=== PATIENT | female | born 1940 | race Two or more races ===

== ENCOUNTER 2024-05-14 20:40 | Inpatient (IN) | payer BC, MEDICARE, OTHER ==
[~2024-05-14] VITALS: Ht 157.5 cm; Wt 67.9 kg
[2024-05-14 21:20] LABS: Basophils # (auto) 0 10 ^3/uL (0-0.2); Basophils % (auto) 0.5 % (0.0-2.0); Eosinophils # (auto) 0.2 10 ^3/uL (0-0.8); Eosinophils % (auto) 2.1 % (0.0-7.0); Hematocrit 37.7 % (36.0-46.0); Hemoglobin 12.8 g/dL (12.2-16.2); Lymphocytes # (auto) 1.7 10 ^3/uL (0.4-5.4); Lymphocytes % (auto) 23.4 % (10.0-50.0); Monocytes # (auto) 0.6 10 ^3/uL (0-1.3); Monocytes % (auto) 8.9 % (0.0-12.0); Neutrophils # (auto) 4.7 10 ^3/uL (1.6-8.6); Neutrophils % (auto) 65.1 % (37.0-80.0); Platelet Count (auto) 197 10^3/uL (140-450); Red Blood Cells 3.77 10^6/uL (4.0-5.20); Red Cell Distribution Width 13.7 % (11.8-14.3); White Blood Cell 7.3 10^3/uL (4.4-10.8)
[2024-05-14] MEDS: ONDANSETRON HCL 4 MG/2 ML VIAL IV ONE (21:27)
[2024-05-14] MEDS: MORPHINE SULFATE INJ 2 MG/ml SYRG IV ONE (21:27)
[2024-05-14 21:40] LABS: Chloride 104 mmol/L (98-107); Potassium 4.1 mmol/L (3.5-5.1); Sodium 137 mmol/L (136-145)
[2024-05-14 21:41] LABS: Anion Gap 3 (5-15); Carbon Dioxide 30 mmol/L (20-30)
[2024-05-14 21:42] LABS: Calcium 9.9 mg/dL (8.7-10.4)
[2024-05-14 21:46] LABS: Glucose 124 mg/dL (74-106)
[2024-05-14 21:47] LABS: BUN/Creatinine Ratio 18.4 (10.0-20.0); Blood Urea Nitrogen 16 mg/dL (9-23)
[2024-05-14 21:58] VITALS: PULSE 72; RESP 16; O2SAT 97
[2024-05-15] VITALS (9 sets, daily range): BP systolic 86–121; BP diastolic 40–63; PULSE 69–90; RESP 15–20; TEMP 97.7–98.5; O2SAT 90–100
[2024-05-15] MEDS ORDERED: ONDANSETRON HCL 4 MG/2 ML VIAL IV ONE (00:45)
[2024-05-15] MEDS ORDERED: ACETAMINOPHEN 325 MG TAB PO PRN (01:30)
[2024-05-15] MEDS ORDERED: ONDANSETRON HCL 4 MG/2 ML VIAL IV PRN (01:30)
[2024-05-15 01:50] LABS: Urine Bacteria FEW /hpf (None Seen); Urine Blood Negative /uL (Negative); Urine Clarity Clear (Clear); Urine Color Light-Yellow (Yellow); Urine Mucus FEW (None Seen); Urine Protein, UAD TRACE (Negative); Urine Specific Gravity 1.026 (1.001-1.035); Urine Urobilinogen Normal (Negative); Urine WBC 28 /hpf (0 - 5); Urine pH 5.5 (5.0-9.0)
[2024-05-15] MEDS: HYDROcodone-ACET 10/325MG TAB PO ONE (02:18)
[2024-05-15] MEDS: MORPHINE SULFATE 4 MG/ML SYR/VIAL IV ONE (02:19)
[2024-05-15] MEDS: SODIUM CHLORIDE 0.9% 1,000 ML IV ONE (02:50)
[2024-05-15] MEDS: D5W 5% 1,000 ML IV ONE (02:50)
[2024-05-15] MEDS ORDERED: OMEP20TA PO (04:16)
[2024-05-15] MEDS ORDERED: SIMV20TA20 PO (04:16)
[2024-05-15] MEDS ORDERED: TRAM50TA2 PO (04:16)
[2024-05-15] MEDS ORDERED: METF-370 PO (04:16)
[2024-05-15] MEDS: SODIUM CHLOR 0.9% PF (SALINE LOCK) 10ML VIAL/SYR IV SCH (05:24)
[2024-05-15] MEDS: PANTOPRAZOLE 40 MG/10 ML VIAL INJ IV SCH (08:56)
[2024-05-15] MEDS: HYDROcodone-ACET 5/325MG TAB PO PRN (08:57)
[2024-05-15] MEDS: Glucerna Carbsteady SHAKE Stawberry 8oz PO SCH (12:15)
[2024-05-15] MEDS ORDERED: DEXTROSE (50%) 50ML SYRG IV PRN (14:30)
[2024-05-15] MEDS: ACCU-CHEK COMFORT CURVE STRIP VI SCH (17:00)
[2024-05-15] MEDS: InsuLIN REG 1unit/0.01ml Soln (100units/ml) SC SCH (17:00)
[2024-05-15] MEDS: HYDROmorphone HCL 2 MG/ML VL/or syr IV PRN (23:31)
[2024-05-16] VITALS (8 sets, daily range): BP systolic 103–163; BP diastolic 48–79; PULSE 87–93; RESP 18–20; TEMP 97.3–98.9; O2SAT 93–99
[2024-05-16] MEDS: ENOXAPARIN SOD 40 MG/0.4 ML SYRINGE SC SCH (08:20)
[2024-05-17] VITALS (8 sets, daily range): BP systolic 109–146; BP diastolic 59–97; PULSE 75–92; RESP 17–18; TEMP 97.1–98.3; O2SAT 95–99
[2024-05-18] VITALS (8 sets, daily range): BP systolic 115–136; BP diastolic 54–69; PULSE 80–107; RESP 16–18; TEMP 98–99.8; O2SAT 93–98
[2024-05-19 01:00] VITALS: BP 178/67; PULSE 103; RESP 16; TEMP 98.8; O2SAT 97
[2024-05-19 05:00] VITALS: BP 131/74; PULSE 100; RESP 18; TEMP 98.9; O2SAT 96
[2024-05-19 09:00] VITALS: BP 102/60; PULSE 94; RESP 20; TEMP 98.4; O2SAT 96
[2024-05-19 13:00] VITALS: BP 123/57; PULSE 91; RESP 19; TEMP 99; O2SAT 99
[2024-05-19 17:00] VITALS: BP 122/59; PULSE 105; RESP 18; TEMP 98; O2SAT 97
[2024-05-19 17:27] LABS: COVID19 ANTIGEN SOFIA FIA NEGATIVE (NEGATIVE)
[2024-05-19 17:28] LABS: Rapid Influenza A Negative (Negative); Rapid Influenza B Negative (Negative)
== END 2024-05-19 18:30 | DRG 563 ==
LOC: ER 20:40 → EDBD 20:40 → OVERFLOW 05-15 01:18 → EAST 05-15 03:30
PROVIDERS: ADMIT Internal Medicine; ATTEND Internal Medicine
DX: S42.131A Displaced fracture of coracoid process, right shoulder, initial encounter for closed fracture (principal); S32.511A Fracture of superior rim of right pubis, initial encounter for closed fracture; S42.141A Displaced fracture of glenoid cavity of scapula, right shoulder, initial encounter for closed fracture; M25.471 Effusion, right ankle; E11.9 Type 2 diabetes mellitus without complications; I10 Essential (primary) hypertension; Z79.4 Long term (current) use of insulin; Z79.899 Other long term (current) drug therapy; W01.0XXA Fall on same level from slipping, tripping and stumbling without subsequent striking against object, initial encounter; Y93.89 Activity, other specified; Y92.098 Other place in other non-institutional residence as the place of occurrence of the external cause; Y99.8 Other external cause status
CPT/HCPCS: 36415; 70450; 71250; 72125; 72192; 73200; 73610; 80048; 81001; 82962; 84484; 85025; 87426; 87804; 93005; 97110; 97116; 97163; 97530; G0378; J1815; J2405; J2470